=== PATIENT | female | born 1955 | race Caucasian/White ===

== ENCOUNTER 2024-06-19 20:06 | Inpatient (IN) | payer OTHER, SELFPAY ==
[2024-06-19] VITALS (8 sets, daily range): BP systolic 88–135; BP diastolic 57–73; BMI 34.0; BMI 32.5
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
[2024-06-19 16:41] LABS: % Basophils 0.7 % (0-2); % Eosinophils 1.7 % (0-6); % Immature Granulocytes 0.2 % (0-0.5); % Lymphocytes 27.4 % (20.5-51.1); % Monocytes 7.4 % (1.7-9.3); % Neutrophils 62.6 % (42.2-75.2); Absolute Eosinophils 0.1 10^3/uL (0-0.7); Absolute Lymphocytes 1.6 10^3/uL (1.2-3.4); Absolute Monocytes 0.4 10^3/uL (0.1-0.6); Absolute Neutrophils 3.7 10^3/uL (1.4-6.5); Hematocrit 25.5 % (37.0-47.0); Hemoglobin 7.9 g/dL (12.0-16.0); Mean Corpuscular Hgb 25.4 pg (27.0-31.0); Mean Platelet Volume 11.2 fL (7.4-10.4); Nucleated Red Blood Cells % 0 %; Platelet Count 168 10^3/uL (130-400); Red Blood Cell Count 3.11 10^6/uL (4.20-5.40); Red Cell Dist. Width 17.2 % (11.5-14.5); White Blood Cell Count 5.9 10^3/uL (4.8-10.8)
[2024-06-19 16:55] LABS: ALT (SGPT) 14 U/L (0-35); AST (SGOT) 28 U/L (14-36); Albumin 2.8 g/dl (3.5-5.0); Alkaline Phosphatase 54 U/L (38-126); Blood Urea Nitrogen 29 mg/dl (7-17); Calcium 7.9 mg/dl (8.4-10.2); Carbon Dioxide 21 mmol/L (22-30); Chloride 108 mmol/L (98-107); Glucose 137 mg/dl (70-99); Potassium 3.6 mmol/L (3.5-5.1); Sodium 137 mmol/L (135-145); Total Bilirubin 0.2 mg/dl (0.2-1.3); Total Protein 5.5 g/dl (6.3-8.2); eGFR > 60.00
[2024-06-19] MEDS: PROTONIX IV 40 MG IV (19:17)
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
[2024-06-19] MEDS: NON-FORMULARY ITEM PO (20:25)
--- NOTE | 2024-06-19 22:25 | PTCARENOTE ---
Pt received from ED via stretcher. Ambulated to bed w/assist x1 w/o incident. Telemetry = SR. Oriented to surroundings and plan of care discussed. Admission and assessment completed. Pt reports intermittent dizziness, denies at present.
Reports tarry stools, last BM 06/19. Instructed to ring for assist when getting OOB, verbalizes understanding. SCD's place. Call avina within reach, plan of care ongoing.
[2024-06-19] MEDS: ELAVIL 50 MG PO (22:35)
[2024-06-19] MEDS: CRESTOR 5 MG PO (22:35)
[2024-06-20] VITALS (28 sets, daily range): BP systolic 99–148; BP diastolic 49–86; BMI 32.8
[2024-06-20] MEDS: SYNTHROID 50 MCG PO (06:29)
[2024-06-20 08:31] LABS: ALT (SGPT) 14 U/L (0-35); AST (SGOT) 28 U/L (14-36); Albumin 2.9 g/dl (3.5-5.0); Alkaline Phosphatase 58 U/L (38-126); Blood Urea Nitrogen 29 mg/dl (7-17); Calcium 8.5 mg/dl (8.4-10.2); Carbon Dioxide 23 mmol/L (22-30); Chloride 108 mmol/L (98-107); Estimated Creatinine Clearance 69 ml/min; Glucose 99 mg/dl (70-99); Potassium 4.5 mmol/L (3.5-5.1); Sodium 137 mmol/L (135-145); Total Bilirubin 0.1 mg/dl (0.2-1.3); Total Protein 5.5 g/dl (6.3-8.2); eGFR > 60.00
[2024-06-20 08:35] LABS: % Basophils 0.3 % (0-2); % Eosinophils 2.9 % (0-6); % Immature Granulocytes 0.3 % (0-0.5); % Lymphocytes 36.4 % (20.5-51.1); % Monocytes 7.1 % (1.7-9.3); Absolute Eosinophils 0.1 10^3/uL (0-0.7); Absolute Lymphocytes 1.4 10^3/uL (1.2-3.4); Absolute Monocytes 0.3 10^3/uL (0.1-0.6); Hematocrit 21.9 % (37.0-47.0); Mean Corpuscular Hgb 25.9 pg (27.0-31.0); Mean Corpuscular Volume 81.1 fL (81.0-99.0); Mean Platelet Volume 11.6 fL (7.4-10.4); Nucleated Red Blood Cells % 0 %; Platelet Count 122 10^3/uL (130-400); Red Cell Dist. Width 17.4 % (11.5-14.5); White Blood Cell Count 3.8 10^3/uL (4.8-10.8)
[2024-06-20] MEDS: VITAMIN D3 (cholecalciferol) 25 MCG PO (09:06)
[2024-06-20] MEDS: NSS (PRESERVATIVE FREE) 10 ML IV (09:06)
[2024-06-20] MEDS: DITROPAN 2.5 MG PO ×2 (09:06→21:13)
[2024-06-20] MEDS: PROTONIX IV 40 MG IV (09:07)
[2024-06-20 09:15] LABS: Hepatitis C Antibody Negative (Negative)
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
[2024-06-20 10:49] LABS: Reticulocyte Count 2.5 % (0.4-2.8)
--- NOTE | 2024-06-20 11:34 | W.PN.HOSP.TC ---
Addendum entered and electronically signed by Richard Patel MD 06/30/24 12:56:
Pancytopenia pattern noted, but cause not known.
Original Note:
Today's Communication/Plan
-
NPO pending EGD. 1 unit prbc ordered.
Assessment / Plan
Assessment / Plan
69 woman with syncopal event and black stools after taking ibuprofen.
PLAN:
1. Upper GI bleeding/symptomatic acute blood loss anemia likely from NSAID induced gastritis/ulcer
-Hemoglobin 7.9 --> 7.0 blood transfusion x1 unit ordered now
-Heme positive stool
-Type and screen sent
-Protonix 40 twice daily
-n.p.o
-Hold ibuprofen
-Check iron studies, B12 and folate
-GI consulted
2. Hypothyroidism
-Continue levothyroxine once she can take po again
3. Chronic interstitial cystitis - continue po meds when she can resume po:
-Continue amitriptyline
-Continue oxybutynin
-Continue Elmiron
4. Hyperlipidemia - continue when she can resume po
-Continue statin
5. Essential hypertension
-Hold metoprolol
Full code
DVT prophylaxis�SCDs
N.p.o. past midnight
Anticipated Discharge: 24 - 48 hours
Subjective/Interval History
-
Date of Service: June 20, 2024
no new complaints today
Objective Data
-
Labs:
Laboratory Results
06/20/24 06/20/24 06/20/24
06:42 11:45 17:45
WBC 3.8 L
Hgb 7.0 L Pending Pending
Hct 21.9 L Pending Pending
Plt Count 122 L D
Sodium 137
Potassium 4.5
Chloride 108 H
Carbon Dioxide 23
BUN 29 H
Creatinine 0.8
Glucose 99
Calcium 8.5
Total Bilirubin 0.1 L
AST 28
ALT 14
Alkaline Phosphatase 58
06/20/24
23:45
WBC
Hgb Pending
Hct Pending
Plt Count
Sodium
Potassium
Chloride
Carbon Dioxide
BUN
Creatinine
Glucose
Calcium
Total Bilirubin
AST
ALT
Alkaline Phosphatase
Vital Signs:
Vital Signs
Temp Pulse Resp BP Pulse Ox
98.2 F 81 17 107/55 100
06/20/24 11:11 06/20/24 11:11 06/20/24 11:11 06/20/24 11:11 06/20/24 11:11
Review of Systems
-
History Source: Patient
All other systems: Reviewed and negative
Physical Exam
-
General: Well Developed, Well Nourished, No Apparent Distress, Comfortable and Obese
HEENT: Normocephalic, Atraumatic, Nose Appears Normal and Ears Appear Normal
Respiratory: Clear to Auscultation
Cardiac: Regular Rhythm and S1/S2
GI: Soft, Nontender and Nondistended
Musculoskeletal: No Clubbing, No Cyanosis and No Edema
Skin: Warm and Dry
Neuro: Awake, Alert, Oriented and AO x 3
Psych: Calm
Data Reviewed
-
Labs: Labs Reviewed by me
[2024-06-20] MEDS: NON-FORMULARY ITEM 200 MG PO (12:01)
[2024-06-20 12:05] LABS: Iron 241 ug/dl (37-170)
[2024-06-20 12:20] LABS: Percent Saturation 56 % (20-50); Total Iron Binding Capacity 424 ug/dl (265-497)
[2024-06-20 12:40] LABS: Ferritin 46.4 ng/ml (11.1-264.0)
[2024-06-20 12:56] LABS: Vitamin B12 428 pg/ml (239-931)
--- NOTE | 2024-06-20 12:57 | PN.CDI ---
CDI
- -
CDI:
Physician Documentation Request
Admit Date: 06/19/24 20:06
Dear Doctor Jorge,
Please review the following and provide your response in the progress notes.
Clinical Indicators:
Laboratory Tests
06/20/24
06:42
WBC 3.8 L
RBC 2.70 L
Plt Count 122 L D
Based on the above and your clinical assessment, please clarify in the progress notes, the appropriate diagnosis, if significant, that supports the above abnormalities and additional evaluation, monitoring and/or treatment rendered:
Other Drug Induced Pancytopenia
Other Pancytopenia
Other (please specify)
Use of terms such as suspected, likely, concern for, or probable (associated with a specific diagnosis that is being evaluated, monitored, or treated as if it exists) are acceptable and can be coded in the inpatient setting, when documented at the
time of discharge.
Thank you,
Neema Faria RN BSN CCDS
CDI Specialist
please contact via tiger text
Please use your independent medical judgment in providing your response.
--- NOTE | 2024-06-20 13:01 | PN.CDI ---
CDI
- -
CDI:
Physician Documentation Request
Admit Date: 06/19/24 20:06
Dear Doctor Jorge,
Please review the following and provide your response in the progress notes.
Clinical Indicators:
PN, 06/20
#1. Upper GI bleeding/symptomatic acute blood loss anemia
#...likely from NSAID induced gastritis/ulcer
Please clarify which of the following accurately represents the acuity of the NSAID induced gastritis/ulcer. Possible options might include:
Acute Gastritis and Acute Gastric Ulcer
Acute Gastritis Only
Acute Gastric Ulcer Only
Exacerbated/decompensated gastric ulcer
Other(please specify)
Use of terms such as suspected, likely, concern for, or probable (associated with a specific diagnosis that is being evaluated, monitored, or treated as if it exists) are acceptable and can be coded in the inpatient setting, when documented at the
time of discharge.
Thank you,
Neema Faria RN BSN CCDS
CDI Specialist
please contact via tiger text
Please use your independent medical judgment in providing your response.
--- NOTE | 2024-06-20 13:15 | PTCARENOTE ---
GI called for patient to go for EGD. Was about to call for 1 Unit of PRBC. GI RN requested that patient come first/blood to be given in GI Lab if needed/will be hung after case.
[2024-06-20 14:38] LABS: INR 0.99; PT 13.6 Sec (11.4-14.6)
[2024-06-20] MEDS: SANDOSTATIN 500.6 MCG IV ×2 (15:14→15:21)
[2024-06-20] MEDS: CIPRO 400 MG 200 IV (15:32)
[2024-06-20] MEDS: PROTONIX 100 IV (16:25)
--- NOTE | 2024-06-20 16:58 | CM ---
Alert awake oriented patient who lives with her Edward in a condo with 12 steps to enter. She is independent in activates of daily living.She does drive She has no adapt devices.Pt will be moving after procedure.
Had VN in past . No SNF hx
Pharmacy [facility]
PCP [facility]
PLAN AWill depend on hospital stay
[2024-06-20 17:26] LABS: Hepatitis B Surface Antigen Negative (Negative)
[2024-06-20 17:30] LABS: Hepatitis A IgM Antibody Negative (Negative); Hepatitis B Core Ab, IgM Negative (Negative)
[2024-06-20] MEDS: SANDOSTATIN 50 MCG IV (17:32)
[2024-06-20 17:35] LABS: Hemoglobin 9.4 g/dL (12.0-16.0); Mean Corp Hgb Conc. 31.3 g/dL (33.0-37.0); Mean Corpuscular Hgb 26.3 pg (27.0-31.0); Mean Platelet Volume 12.1 fL (7.4-10.4); Platelet Count 126 10^3/uL (130-400); Red Blood Cell Count 3.57 10^6/uL (4.20-5.40); Red Cell Dist. Width 16.9 % (11.5-14.5); White Blood Cell Count 4.1 10^3/uL (4.8-10.8)
[2024-06-20 17:43] LABS: Hepatitis B Surface Antibody Negative
--- NOTE | 2024-06-20 18:23 | PTCARENOTE ---
Arrived from PACU via stretcher. and her son is at the bedside and will leave her cell phone and cost and risk analysis manager. Pt with c.o epigastric discomfort. Dr. Seymour informed her in the GI lab that the discomfort is expected after banding. Right hand IV with
Protonix @ 8mg/hr and Octreotide @ 50mcg/hr. She is aware that she will be transferred to IMU. Safe environment maintained, Supportive care provided.
--- NOTE | 2024-06-20 19:13 | PTCARENOTE ---
Per KILN BURNER, ultrasound department was left a phone message for her abdominal ultrasound.
--- NOTE | 2024-06-20 19:30 | PTCARENOTE ---
Patient receieved awake and alert lying in bed, c/o epigastric/esophageal discomfort 04/03. No prn pain medication ordered. Arpan CARMONA contacted for orders. One time dose of IV Acetaminophen given. BBS clear, S1S2 regular, SR on CM. Pulses positive x
4 extremities, no edema. IV sites right hand x 2 patent infusing Protonix gtt at 8mg/hr and Sandostatin gtt at 50mcg/hr.
[2024-06-20] MEDS: OFIRMEV 100 IV (19:44)
[2024-06-20] MEDS: NSS (PRESERVATIVE FREE) IV (21:04)
[2024-06-20] MEDS: CRESTOR 5 MG PO (21:13)
[2024-06-20] MEDS: ULTRAM 25 MG PO (21:14)
--- NOTE | 2024-06-20 22:00 | PTCARENOTE ---
Patient assisted to bathroom, gait steady but feels 'wobbly.' Voids 300cc bharat urine. Assisted back to bed. ST 110s with activity. No CP or SOB. Continues to have 8/10 pain. Prn Dilaudid given per order.
[2024-06-20] MEDS: DILAUDID 0.25 MG IV (22:12)
--- NOTE | 2024-06-20 23:03 | PTCARENOTE ---
2030--Abdominal U/S performed at bedside. Clear liquids ordered for patient after complete, po medications given. Continues to have epigastric/esophageal discomfort 02/01. 25mg Tramadol given per order. Patient states that pressure from abdominal U/S
worsened discomfort.
[2024-06-21] VITALS (16 sets, daily range): BP systolic 120–153; BP diastolic 55–86
--- NOTE | 2024-06-21 | PTCARENOTE ---
Patient states that esophageal pain is currently well controlled. Otherwise, no change in patient assessment. Serial H/H drawn. Patient appears to be sleeping comfortably when undisturbed with eyes closed, lying still, respirations non labored. SR
with HR 70s on CM, BP stable.
[2024-06-21] MEDS: PROTONIX 100 IV ×3 (00:08→22:56)
[2024-06-21 00:40] LABS: Hematocrit 26.1 % (37.0-47.0); Hemoglobin 8.4 g/dL (12.0-16.0)
[2024-06-21] MEDS: SANDOSTATIN 500.6 MCG IV ×2 (02:33→14:36)
[2024-06-21] MEDS: DILAUDID 0.25 MG IV (02:45)
[2024-06-21] MEDS: CIPRO 400 MG 200 IV ×2 (03:34→17:43)
--- NOTE | 2024-06-21 05:00 | PTCARENOTE ---
Patient awoke. C/o nausea. Assisted to bathroom. Voided 275. Zofran given per order. Assisted back to bed. Patient vomited approx 50-75cc fresh blood. Notified house KRISTINE Antony. Also sent [place] text to GI education and outreach coordinator Dr. Jorge Leger. Am labs were drawn. Hgb
stable from previous at 8.6. Patient states relief of nausea after Zofran and emesis.
[2024-06-21] MEDS: ZOFRAN 4 MG IV (05:09)
[2024-06-21 06:06] LABS: % Basophils 0.9 % (0-2); % Immature Granulocytes 0.6 % (0-0.5); % Lymphocytes 31.1 % (20.5-51.1); % Monocytes 6.8 % (1.7-9.3); % Neutrophils 56.6 % (42.2-75.2); Absolute Eosinophils 0.1 10^3/uL (0-0.7); Absolute Monocytes 0.2 10^3/uL (0.1-0.6); Absolute Neutrophils 1.8 10^3/uL (1.4-6.5); Hematocrit 27.4 % (37.0-47.0); Hemoglobin 8.6 g/dL (12.0-16.0); Mean Corp Hgb Conc. 31.4 g/dL (33.0-37.0); Mean Corpuscular Hgb 25.9 pg (27.0-31.0); Mean Corpuscular Volume 82.5 fL (81.0-99.0); Mean Platelet Volume 10.5 fL (7.4-10.4); Nucleated Red Blood Cells % 0 %; Platelet Count 130 10^3/uL (130-400); Red Blood Cell Count 3.32 10^6/uL (4.20-5.40); Red Cell Dist. Width 17.1 % (11.5-14.5); White Blood Cell Count 3.3 10^3/uL (4.8-10.8)
[2024-06-21] MEDS: SYNTHROID PO (06:07)
[2024-06-21 06:23] LABS: INR 1.03
--- NOTE | 2024-06-21 06:26 | W.PN.UPDATE ---
Update Note
Progress Note Update
RN reported to ASSISTANT DIRECTOR OF PUBLIC WORKS. patient had an episode of emesis. Reports approximately 50 CC of blood. Patient asymptomatic. stable VS, Hgb 8.6, NPO, Protonix drip.
RN stated she texted GI awaiting response.
[2024-06-21 06:39] LABS: Blood Urea Nitrogen 26 mg/dl (7-17); Carbon Dioxide 22 mmol/L (22-30); Chloride 106 mmol/L (98-107); Direct Bilirubin 0.1 mg/dl (0.0-0.4); Estimated Creatinine Clearance 69 ml/min; Glucose 141 mg/dl (70-99); Potassium 4.1 mmol/L (3.5-5.1); Sodium 135 mmol/L (135-145); eGFR > 60.00
--- NOTE | 2024-06-21 07:20 | PTCARENOTE ---
Report given verbally to KSENIA Mcgovern, questions answered.
--- NOTE | 2024-06-21 07:39 | PTCARENOTE ---
07:00 patient in bed . BP 130/73 SR 73 telemetry RR 14 POX 97RA .
Octreotide 50.04/41.07 and Protonix 8mcg/10ml RT peripheral lines
call avina within reach
--- NOTE | 2024-06-21 08:04 | W.PN.HOSP.TC ---
Today's Communication/Plan
-
see A/P
Assessment / Plan
Assessment / Plan
69 woman with syncopal event and black stools after taking ibuprofen.
A/P:
# Upper GI bleeding/symptomatic acute blood loss anemia, 2/2 esophageal varices
# UGIB exacerbated by NSAID use
s/p 1 unit PRBC transfusion
Hgb 8.6 today
s/p EGD 06/20: noted Large (> 5 mm) esophageal varices with stigmata of recent bleeding. Banded. Clotted blood in the gastric fundus.
Made NPO again with N/V overnight 06/20
Octreotide drip, Protonix drip per GI
Cipro started for HE prophylaxis.
Abdominal ultrasound with doppler was limited, did not reveal any abnormality. Coarsened echotexture of the liver which is likely secondary to chronic liver disease.
Hepatitis panel negative
Need repeat upper GI endoscopy in 4 weeks with GI outpt
Hold ibuprofen
Iron studies reviewed, can start PO iron
B12 level 400, can start PO B12 supplement
# Hypothyroidism
Continue levothyroxine once she can take po again
# Chronic interstitial cystitis
Continue po meds when she can resume po:
Continue amitriptyline
Continue oxybutynin
Continue Elmiron
# Hyperlipidemia - continue when she can resume po
Continue statin
# Essential hypertension
Hold metoprolol
Full code
DVT prophylaxis�SCDs
DW RN
updated on the phone
CC mx for variceal bleed
Anticipated Discharge: 24 - 48 hours
Subjective/Interval History
-
Date of Service: June 21, 2024
Objective Data
-
Labs:
Laboratory Results
06/21/24 06/21/24
00:15 05:54
WBC 3.3 L
Hgb 8.4 L 8.6 L
Hct 26.1 L 27.4 L
Plt Count 130
PT 14.0
INR 1.03
Sodium 135
Potassium 4.1
Chloride 106
Carbon Dioxide 22
BUN 26 H
Creatinine 0.8
Glucose 141 H
Calcium 8.0 L
Vital Signs:
Vital Signs
Temp Pulse Resp BP Pulse Ox
36.6 C 75 14 130/73 97
06/21/24 03:04 06/21/24 06:00 06/21/24 06:00 06/21/24 06:00 06/21/24 06:00
I&O
06/20/24 06/21/24 06/22/24
06:59 06:59 06:59
Intake Total 1831.3 / 1831.3
Output Total 650 / 650
Balance 1181.3 / 1181.3
Review of Systems
-
History Source: Patient
Abdomen/GI: Reports Abdominal Pain (epigastric)
Physical Exam
-
General: Well Developed, Well Nourished, No Apparent Distress and Comfortable
HEENT: Normocephalic, Atraumatic, Nose Appears Normal and Ears Appear Normal
Respiratory: Clear to Auscultation and Non Labored Respirations; Negative Accessory Resp Muscle Use
Cardiac: Regular Rhythm and S1/S2
GI: Soft, Nontender and Nondistended
Musculoskeletal: No Clubbing, No Cyanosis and No Edema
Skin: Warm and Dry
Neuro: Awake and Alert
Psych: Calm and Intact Judgement/Insight
Data Reviewed
-
Ultrasound: Report Reviewed by me, Discussed with Patient and Discussed with Family
Labs: Labs Reviewed by me
[2024-06-21] MEDS: FEOSOL PO (12:24)
[2024-06-21] MEDS: DITROPAN PO ×2 (12:24→20:14)
[2024-06-21] MEDS: VITAMIN B-12 PO (12:24)
[2024-06-21] MEDS: MORPHINE SULFATE 1 MG IV (12:31)
--- NOTE | 2024-06-21 12:42 | PTCARENOTE ---
AAO x3 ambulates to bathroom with supervision . No episodes of melena or vomiting. continues to c/o of epigastric pain describes pain aching 8/10 pain scale level Morphine adm prn order. On IV protonix and sandostatin . Remains NPO ok ICE chips .
ALL pO meds held
--- NOTE | 2024-06-21 16:30 | W.PN.GI.CBS2 ---
Today's Communication / Plan
-
N.p.o.
Continue octreotide/Protonix drip
Continue antibiotic
Continue monitor H&H
Assessment / Plan
-
Impression: 69-year-old female with PMH of hypothyroidism, dyslipidemia, essential hypertension who presented to the ED with melena, dizziness. Labs done in the ED was significant for Hb of 7.9.
Assessment/plan:
#Symptomatic acute blood loss anemia
Upper GI bleeding secondary to varices s/p EGD with EBL 06/20. No prior hx of liver cirrhosis. denies any significant alcohol use or history of hepatitis or substance abuse.AST/ALT/ALP/T.bili normal
EGD 06/20/2024:
Large (> 5 mm) esophageal varices with stigmata of
recent bleeding. Incompletely eradicated. Banded.
- Clotted blood in the gastric fundus.
- Normal duodenal bulb, first portion of the duodenum
and second portion of the duodenum.
- No specimens collected.
Ultrasound abdomen with Doppler 06/20/2024
Coarsened echotexture of the liver which is likely secondary to chronic liver disease. Normal ultrasound evaluation of abdominal vasculature. No ascites
plan
Although patient had an episode of nausea with small amount of bloody vomitus early a.m.-she has been asymptomatic since then. Hb stable.
Will continue to monitor H&H
N.p.o. except ice chips
Continue octreotide drip for 72 hours
PPI drip for 72 hrs
Continue antibiotics for 7 days
Repeat EGD in [address] Seymour
Acute hepatitis panel negative. will order chronic liver disease workup
Patient needs to follow-up with hepatology as outpatient on discharge
Total Time Spent with Patient (in minutes): 35
Subjective
Subjective
Date of Service: June 21, 2024
Had an episode of nausea followed by vomiting small amount of blood this a.m. no further episodes since this a.m. No BMs. Denies any abdominal pain/nausea/vomiting now
Objective
Data Reviewed
Laboratory Data:
Laboratory Results
06/21/24 05:54
06/21/24 05:54
Laboratory Results
PT 14.0 Sec (11.4-14.6) 06/21/24 05:54
INR 1.03 06/21/24 05:54
Total Bilirubin 0.1 mg/dl (0.2-1.3) L 06/20/24 06:42
AST 28 U/L (14-36) 06/20/24 06:42
ALT 14 U/L (0-35) 06/20/24 06:42
Alkaline Phosphatase 58 U/L (38-126) 06/20/24 06:42
Vital Signs and I&O:
Vital Signs
Temp Pulse Resp BP Pulse Ox
98.0 F 76 13 135/66 99
06/21/24 16:06 06/21/24 12:00 06/21/24 12:00 06/21/24 12:00 06/21/24 12:00
I&O
06/20/24 06/21/24 06/22/24
06:59 06:59 06:59
Intake Total 1831.3 / 1831.3
Output Total 650 / 650 300 / 300
Balance 1181.3 / 1181.3 -300 / -300
Physical Exam
Physical Exam
GI: Soft, Non Distended and Non Tender
--- NOTE | 2024-06-21 18:13 | PTCARENOTE ---
No episodes of bleeding during this shift no vomiting
mild epigastric pain Morphine adm earlier pt reported very mild pain improvement
[2024-06-21] MEDS: CRESTOR PO (20:22)
[2024-06-22] VITALS (12 sets, daily range): BP systolic 108–142; BP diastolic 44–72; BMI 32.1
[2024-06-22 04:04] LABS: Hematocrit 25.9 % (37.0-47.0); Hemoglobin 8.3 g/dL (12.0-16.0); Mean Corpuscular Volume 81.2 fL (81.0-99.0); Mean Platelet Volume 10.4 fL (7.4-10.4); Platelet Count 142 10^3/uL (130-400); Red Blood Cell Count 3.19 10^6/uL (4.20-5.40); Red Cell Dist. Width 17.4 % (11.5-14.5); White Blood Cell Count 4.5 10^3/uL (4.8-10.8)
[2024-06-22 04:25] LABS: ALT (SGPT) 14 U/L (0-35); AST (SGOT) 35 U/L (14-36); Albumin 3.1 g/dl (3.5-5.0); Alkaline Phosphatase 60 U/L (38-126); Blood Urea Nitrogen 18 mg/dl (7-17); Calcium 8.1 mg/dl (8.4-10.2); Carbon Dioxide 20 mmol/L (22-30); Chloride 106 mmol/L (98-107); Direct Bilirubin 0.1 mg/dl (0.0-0.4); Estimated Creatinine Clearance 69 ml/min; Glucose 106 mg/dl (70-99); Magnesium 1.7 mg/dl (1.6-2.3); Potassium 4.2 mmol/L (3.5-5.1); Sodium 137 mmol/L (135-145); Total Bilirubin 0.6 mg/dl (0.2-1.3); eGFR > 60.00
[2024-06-22 04:35] LABS: Total Iron Binding Capacity 443 ug/dl (265-497)
[2024-06-22] MEDS: CIPRO 400 MG 200 IV ×2 (04:42→15:40)
[2024-06-22] MEDS: SANDOSTATIN 500.6 MCG IV ×2 (04:42→15:40)
[2024-06-22 04:49] LABS: Ferritin 52.8 ng/ml (11.1-264.0)
[2024-06-22] MEDS: SYNTHROID PO (05:00)
--- NOTE | 2024-06-22 08:27 | PTCARENOTE ---
0700 patient in bed. on Protonix 8mcg/10 ml Sandostatin 50/41.7 VSS
--- NOTE | 2024-06-22 09:05 | W.PN.HOSP.TC ---
Today's Communication/Plan
-
see A/P
Assessment / Plan
Assessment / Plan
69 woman with syncopal event and black stools after taking ibuprofen.
A/P:
# Upper GI bleeding/symptomatic acute blood loss anemia, 2/2 esophageal varices
# UGIB exacerbated by NSAID use
s/p 1 unit PRBC transfusion
Hgb 8.3 today
s/p EGD 06/20: noted Large (> 5 mm) esophageal varices with stigmata of recent bleeding. Banded. Clotted blood in the gastric fundus.
Octreotide drip and Protonix drip x72 hours per GI
Cipro started for HE prophylaxis x7 days
Abdominal ultrasound with doppler was limited, did not reveal any abnormality. Coarsened echotexture of the liver which is likely secondary to chronic liver disease.
Hepatitis panel negative
Follow autoimmune Ab (CRIS, mitochondrial, liver Ag Ab, liver/kidney microsome, anti smooth muscle) for AIH work up
Need repeat upper GI endoscopy in 4 weeks with GI outpt
Hold ibuprofen
Iron studies reviewed, started PO iron
B12 level 400, started PO B12 supplement
Start clears 06/22 and ADAT
# Hypothyroidism
Continue levothyroxine once she can take po again
# Chronic interstitial cystitis
Continue po meds when she can resume po:
Continue amitriptyline
Continue oxybutynin
Continue Elmiron
# Hyperlipidemia - continue when she can resume po
Continue statin
# Essential hypertension
Hold metoprolol
Full code
DVT prophylaxis�SCDs
DW extensively at bedside
total time spent 51 min
Anticipated Discharge: 24 - 48 hours
Subjective/Interval History
-
Date of Service: June 22, 2024
Objective Data
-
Labs:
Laboratory Results
06/22/24
03:40
WBC 4.5 L
Hgb 8.3 L
Hct 25.9 L
Plt Count 142
Sodium 137
Potassium 4.2
Chloride 106
Carbon Dioxide 20 L
BUN 18 H
Creatinine 0.8
Glucose 106 H
Calcium 8.1 L
Total Bilirubin 0.6
AST 35
ALT 14
Alkaline Phosphatase 60
Vital Signs:
Vital Signs
Temp Pulse Resp BP Pulse Ox
36.9 C 85 15 135/65 92
06/22/24 07:00 06/22/24 02:00 06/22/24 02:00 06/22/24 02:00 06/22/24 02:00
I&O
06/21/24 06/22/24 06/23/24
06:59 06:59 06:59
Intake Total 1831.3 / 1831.3 824 / 824
Output Total 650 / 650 1350 / 1350
Balance 1181.3 / 1181.3 -526 / -526
[2024-06-22] MEDS: VITAMIN B-12 1000 MCG PO (09:54)
[2024-06-22] MEDS: FEOSOL 325 MG PO (09:54)
[2024-06-22] MEDS: DITROPAN 2.5 MG PO ×2 (09:54→19:09)
[2024-06-22] MEDS: PROTONIX 100 IV ×2 (10:03→19:09)
--- NOTE | 2024-06-22 11:51 | W.PN.GI.CBS2 ---
Today's Communication / Plan
-
Clear liquid diet
Monitor H&H
Continue care as per plan
Assessment / Plan
-
Impression: 69-year-old female with PMH of hypothyroidism, dyslipidemia, essential hypertension who presented to the ED with melena, dizziness. Labs done in the ED was significant for Hb of 7.9.
Assessment/plan:
#Symptomatic acute blood loss anemia
Upper GI bleeding secondary to varices s/p EGD with EBL 06/20. No prior hx of liver cirrhosis. denies any significant alcohol use or history of hepatitis or substance abuse.AST/ALT/ALP/T.bili normal
EGD 06/20/2024:
Large (> 5 mm) esophageal varices with stigmata of
recent bleeding. Incompletely eradicated. Banded.
- Clotted blood in the gastric fundus.
- Normal duodenal bulb, first portion of the duodenum
and second portion of the duodenum.
- No specimens collected.
Ultrasound abdomen with Doppler 06/20/2024
Coarsened echotexture of the liver which is likely secondary to chronic liver disease. Normal ultrasound evaluation of abdominal vasculature. No ascites
plan
No further GI bleeding. Hb stable this a.m.
monitor H&H
Clear liquid diet
Continue octreotide drip for 72 hours (okay to DC tomorrow)
PPI drip for 72 hrs. Switch to 40 mg twice daily tomorrow continue antibiotics for 7 days
Repeat EGD in [address] Seymour
Acute hepatitis panel negative. ordered chronic liver disease workup-pending
Patient needs to follow-up with hepatology as outpatient on discharge
Total Time Spent with Patient (in minutes): 35
Subjective
Subjective
Date of Service: June 22, 2024
No further bleeding. Denies any other GI complaints
Objective
Data Reviewed
Laboratory Data:
Laboratory Results
06/22/24 03:40
06/22/24 03:40
Laboratory Results
PT 14.0 Sec (11.4-14.6) 06/21/24 05:54
INR 1.03 06/21/24 05:54
Magnesium 1.7 mg/dl (1.6-2.3) 06/22/24 03:40
Total Bilirubin 0.6 mg/dl (0.2-1.3) 06/22/24 03:40
AST 35 U/L (14-36) 06/22/24 03:40
ALT 14 U/L (0-35) 06/22/24 03:40
Alkaline Phosphatase 60 U/L (38-126) 06/22/24 03:40
Vital Signs and I&O:
Vital Signs
Temp Pulse Resp BP Pulse Ox
98.5 F 85 15 135/65 92
06/22/24 07:00 06/22/24 02:00 06/22/24 02:00 06/22/24 02:00 06/22/24 02:00
I&O
06/21/24 06/22/24 06/23/24
06:59 06:59 06:59
Intake Total 1831.3 / 1831.3 824 / 824
Output Total 650 / 650 1350 / 1350
Balance 1181.3 / 1181.3 -526 / -526
Physical Exam
Physical Exam
GI: Soft, Non Distended and Non Tender
--- NOTE | 2024-06-22 17:10 | PTCARENOTE ---
AAO x3 Ambulates to bathroom . Continent of urine. VSS Denies epigastric pain . Abdomen soft non-tender No N/V Tolerating Clear liquid diet . No melena this shift. on Protonix and Sandostatin
[2024-06-22] MEDS: CRESTOR 5 MG PO (21:19)
[2024-06-23] VITALS (11 sets, daily range): BP systolic 114–140; BP diastolic 58–78
--- NOTE | 2024-06-23 01:46 | PTCARENOTE ---
Received transfer from ICU. AAOx3. On RA, lungs CTA. VSS at this time. Pt offers no complaints. Resting in bed with call avina in reach.
[2024-06-23] MEDS: SYNTHROID 50 MCG PO (04:32)
[2024-06-23] MEDS: CIPRO 400 MG 200 IV ×2 (04:32→16:58)
[2024-06-23 05:20] LABS: Hematocrit 24.4 % (37.0-47.0); Hemoglobin 7.8 g/dL (12.0-16.0); Mean Corpuscular Hgb 26.6 pg (27.0-31.0); Mean Corpuscular Volume 83.3 fL (81.0-99.0); Mean Platelet Volume 10.9 fL (7.4-10.4); Platelet Count 130 10^3/uL (130-400); Red Blood Cell Count 2.93 10^6/uL (4.20-5.40); Red Cell Dist. Width 17.7 % (11.5-14.5); White Blood Cell Count 3.3 10^3/uL (4.8-10.8)
[2024-06-23 05:46] LABS: ALT (SGPT) 12 U/L (0-35); AST (SGOT) 35 U/L (14-36); Alkaline Phosphatase 62 U/L (38-126); Blood Urea Nitrogen 12 mg/dl (7-17); Calcium 7.9 mg/dl (8.4-10.2); Carbon Dioxide 22 mmol/L (22-30); Chloride 107 mmol/L (98-107); Direct Bilirubin 0.1 mg/dl (0.0-0.4); Estimated Creatinine Clearance 61 ml/min; Glucose 105 mg/dl (70-99); Potassium 3.7 mmol/L (3.5-5.1); Sodium 136 mmol/L (135-145); Total Bilirubin 0.4 mg/dl (0.2-1.3); Total Protein 5.6 g/dl (6.3-8.2); eGFR > 60.00
[2024-06-23] MEDS: PROTONIX 100 IV (06:20)
[2024-06-23] MEDS: VITAMIN B-12 1000 MCG PO (08:36)
[2024-06-23] MEDS: DITROPAN 2.5 MG PO ×2 (08:36→20:48)
[2024-06-23] MEDS: FEOSOL 325 MG PO (08:36)
--- NOTE | 2024-06-23 09:42 | W.PN.GI.CBS2 ---
Addendum entered and electronically signed by Hayden Aguayo MD 06/23/24 13:52:
I saw and examined the patient.
The SUPERVISOR CELL ROOM or PA's note was reviewed and I agree with the note.
Comment: 69 yo F admitted with melena and anemia s/p EGD with Dr. Seymour 06/20 found to have esophageal varices s/p banding, blood in stomach limiting views.
Platelets low/normal, coarse echotexture on liver on Doppler suspect new diagnosis cirrhosis. No ETOH use in past.
Slight drop in Hb today but no overt bleeding.
Will continue octreotide gtt until tomorrow.
On full liquids now.
On PPI BID since stomach could not be fully evaluated.
Plan repeat EGD in 4 weeks - this needs to be set up I sent a msg to scheduling.
Has outpatient appt with Jodie 07/09 at 11:30am.
I had my office reach out to PCP - ok with changing metoprolol to coreg on discharge would be beneficial for varices.
I gave patient name/number of Dr. Cole.
Will need 7 days of cipro total.
If Hb stable, can stop octreotide tomorrow and advance diet.
Dr. Garcia ordered liver work up.
Original Note:
Today's Communication / Plan
-
advance to full liquid
Assessment / Plan
-
Impression: 69-year-old female with PMH of hypothyroidism, dyslipidemia, essential hypertension who presented to the ED with melena, dizziness. Labs done in the ED was significant for Hb of 7.9.
Assessment/plan:
#Symptomatic acute blood loss anemia
Upper GI bleeding secondary to varices s/p EGD with EBL 06/20. No prior hx of liver cirrhosis. denies any significant alcohol use or history of hepatitis or substance abuse.AST/ALT/ALP/T.bili normal
EGD 06/20/2024:
Large (> 5 mm) esophageal varices with stigmata of
recent bleeding. Incompletely eradicated. Banded.
- Clotted blood in the gastric fundus.
- Normal duodenal bulb, first portion of the duodenum
and second portion of the duodenum.
- No specimens collected.
Ultrasound abdomen with Doppler 06/20/2024
Coarsened echotexture of the liver which is likely secondary to chronic liver disease. Normal ultrasound evaluation of abdominal vasculature. No ascites
Plan:
No further GI bleeding. Hb stable this a.m.
CBC, BMP in am
Advance to full liquid
Continue octreotide drip to be DC today
PPI drip to finish today, then Pantoprazole 40 mg BID
Continue Cipro BID until 06/27/24
Repeat EGD in [address] Seymour. sent message to our scheduling to arrange
Acute hepatitis panel negative. T Bili and LFTs WNL
Ordered chronic liver disease workup-pending
Patient needs to follow-up with hepatology as outpatient on discharge. Discussed with patient and given name of Dr. Cole at [facility] (who comes to [place] office).
Subjective
Subjective
Date of Service: June 23, 2024
Patient without any complaints. Tolerating clear liquid diet without any difficulty. No BM or signs of bleeding. Hgb 7.8 (from 8.3) past 24 hrs. BUN 12, down from 18. VSS. Today is last day for Octreotide gtt and Pantoprazole gtt. Then may go to
Pantoprazole 40 mg BID. Continues on Cipro 400 mg IV BID until 06/27/24 for ppx. No signs of asterixis. Discussed with patient and at length at bedside about cirrhosis, need for repeat EGD and follow up with Hepatology as an outpatient.
Objective
Data Reviewed
Laboratory Data:
Laboratory Results
06/23/24 04:41
06/23/24 04:41
Laboratory Results
PT 14.0 Sec (11.4-14.6) 06/21/24 05:54
INR 1.03 06/21/24 05:54
Magnesium 1.7 mg/dl (1.6-2.3) 06/22/24 03:40
Total Bilirubin 0.4 mg/dl (0.2-1.3) 06/23/24 04:41
AST 35 U/L (14-36) 06/23/24 04:41
ALT 12 U/L (0-35) 06/23/24 04:41
Alkaline Phosphatase 62 U/L (38-126) 06/23/24 04:41
Vital Signs and I&O:
Vital Signs
Temp Pulse Resp BP Pulse Ox
97.8 F 67 14 137/67 94
06/23/24 07:50 06/23/24 08:00 06/23/24 08:00 06/23/24 08:00 06/23/24 08:00
I&O
06/22/24 06/23/24 06/24/24
06:59 06:59 06:59
Intake Total 824 / 824 1456 / 1456
Output Total 1350 / 1350 1800 / 1800 350 / 350
Balance -526 / -526 -344 / -344 -350 / -350
Physical Exam
Physical Exam
HEENT: Anicteric
Cardiology: Normal Sinus Rhythm
Pulmonary: Clear
GI: Soft, Non Distended, Non Tender and Normal Bowel Sounds
Neuro: Non Focal and Other (no asterixis)
--- NOTE | 2024-06-23 10:06 | W.PN.HOSP.TC ---
Today's Communication/Plan
-
H/H at 6 pm. If < 7.0/21, will need transfusion. Otherwise, can have full liquids today.
Assessment / Plan
Assessment / Plan
69 woman with syncopal event and black stools after taking ibuprofen.
EGD 06/20: noted Large (> 5 mm) esophageal varices with stigmata of recent bleeding. Banded. Clotted blood in the gastric fundus.
A/P:
1. Upper GI bleeding/symptomatic acute blood loss anemia, 2/2 esophageal varices - UGIB exacerbated by NSAID use
s/p 1 unit PRBC transfusion
Hgb 8.3 yesterday -> 7.8 today
-Check h/h today in afternoon, if < 7.0/21 give one unit PRBC
Octreotide drip and Protonix drip per GI
Cipro started for HE prophylaxis x7 days total
Abdominal ultrasound with doppler was limited, did not reveal any abnormality. Coarsened echotexture of the liver which is likely secondary to chronic liver disease.
Hepatitis panel negative
- Follow autoimmune Ab (CRIS, mitochondrial, liver Ag Ab, liver/kidney microsome, anti smooth muscle) for AIH work up
- Need repeat upper GI endoscopy in 4 weeks with GI outpt
- Hold ibuprofen all NSAIDS indefinitely
- Iron studies reviewed, started PO iron
- B12 level 400, started PO B12 supplement
Per GI, diet can be advanced today to full liquids
2. Hypothyroidism
Continue levothyroxine
3. Chronic interstitial cystitis
Continue po meds when she can resume po:
Continue amitriptyline
Continue oxybutynin
Continue Elmiron
4. Hyperlipidemia
Continue statin
5. Essential hypertension
Hold metoprolol
restart as ouutpatient
Full code
DVT prophylaxis�SCDs
DW extensively at bedside
total time spent 51 min
Anticipated Discharge: > 48 hours
Subjective/Interval History
-
Date of Service: June 23, 2024
Feels better. Has chronic neck pain.
Objective Data
-
Labs:
Laboratory Results
06/23/24
04:41
WBC 3.3 L
Hgb 7.8 L
Hct 24.4 L
Plt Count 130
Sodium 136
Potassium 3.7
Chloride 107
Carbon Dioxide 22
BUN 12
Creatinine 0.9
Glucose 105 H
Calcium 7.9 L
Total Bilirubin 0.4
AST 35
ALT 12
Alkaline Phosphatase 62
Vital Signs:
Vital Signs
Temp Pulse Resp BP Pulse Ox
97.8 F 67 14 137/67 94
06/23/24 07:50 06/23/24 08:00 06/23/24 08:00 06/23/24 08:00 06/23/24 08:00
I&O
06/22/24 06/23/24 06/24/24
06:59 06:59 06:59
Intake Total 824 / 824 1456 / 1456
Output Total 1350 / 1350 1800 / 1800 350 / 350
Balance -526 / -526 -344 / -344 -350 / -350
Review of Systems
-
History Source: Patient
All other systems: Reviewed and negative
Physical Exam
-
General: Well Developed, Well Nourished, No Apparent Distress, Comfortable and Conversant
HEENT: Normocephalic, Atraumatic, Moist Mucous Membranes, Nose Appears Normal and Ears Appear Normal
Respiratory: Clear to Auscultation
Cardiac: Regular Rhythm and S1/S2
GI: Soft, Nontender and Nondistended
Musculoskeletal: No Clubbing, No Cyanosis and No Edema
Skin: Warm and Dry
Neuro: Awake, Alert, Oriented and AO x 3
Psych: Calm
Data Reviewed
-
Labs: Labs Reviewed by me
[2024-06-23 12:13] LABS: Ceruloplasmin 32 mg/dL (16-45)
--- NOTE | 2024-06-23 15:31 | CM ---
CM reviewed chart
Remains in IMU and ADC>48 hours
Independent in room and diet advancing
Discharge Disposition- anticipate home no needs
--- NOTE | 2024-06-23 16:40 | PTCARENOTE ---
Rec'd pt this AM. OOB to chair, no complaints. vital signs stable.
[2024-06-23] MEDS: SANDOSTATIN 500.6 MCG IV (17:00)
[2024-06-23] MEDS: PROTONIX IV (17:10)
[2024-06-23 17:51] LABS: Mitochondrial M2 Ab, IgG 8.7 Units (0.0-24.9)
[2024-06-23 18:52] LABS: AFP Male/Tumor Marker 2.54 ng/ml
[2024-06-23] MEDS: CRESTOR 5 MG PO (20:48)
[2024-06-23] MEDS: PROTONIX IV 40 MG IV (20:48)
[2024-06-23] MEDS: NSS (PRESERVATIVE FREE) 10 ML IV (20:48)
--- NOTE | 2024-06-23 22:47 | PTCARENOTE ---
Rec'd pt OOB to chair. Pt ambulated from chair to bed without difficulty. Oriented, denies complaints at this time. Does mention chronic upper back/neck pain that is intermittent, pt states that she has to be careful not to aggravate it. Octreotide
gtt remains in place, see MAR. VSS. Call avina within reach.
[2024-06-24] VITALS (12 sets, daily range): BP systolic 97–156; BP diastolic 60–89; BMI 32.7
[2024-06-24 01:41] LABS: ANA, IgG Reflex to HEp-2 Detected (None Detected)
[2024-06-24] MEDS: SANDOSTATIN 500.6 MCG IV (04:45)
[2024-06-24] MEDS: SYNTHROID 50 MCG PO (04:46)
[2024-06-24] MEDS: CIPRO 400 MG 200 IV ×2 (05:09→16:31)
[2024-06-24 06:33] LABS: Hematocrit 25.2 % (37.0-47.0); Mean Corp Hgb Conc. 31.7 g/dL (33.0-37.0); Mean Corpuscular Hgb 26.5 pg (27.0-31.0); Mean Corpuscular Volume 83.4 fL (81.0-99.0); Mean Platelet Volume 10.3 fL (7.4-10.4); Platelet Count 133 10^3/uL (130-400); Red Blood Cell Count 3.02 10^6/uL (4.20-5.40); Red Cell Dist. Width 18.1 % (11.5-14.5); White Blood Cell Count 3.5 10^3/uL (4.8-10.8)
--- NOTE | 2024-06-24 07:11 | W.PN.HOSP.TC ---
Today's Communication/Plan
-
Advance diet per GI. Also, if GI agrees, may be downgraded to MS.
Assessment / Plan
Assessment / Plan
69 woman with syncopal event and black stools after taking ibuprofen.
EGD 06/20: noted Large (> 5 mm) esophageal varices with stigmata of recent bleeding. Banded. Clotted blood in the gastric fundus.
A/P:
1. Upper GI bleeding/symptomatic acute blood loss anemia, 2/2 esophageal varices - UGIB exacerbated by NSAID use
Hgb 8.3 (06/22) -> 9.0 (06/23) -> 8.0 (06/24)
Octreotide drip and Protonix drip per GI -
Cipro started for HE prophylaxis x7 days total (stop on Jun 27)
Abdominal ultrasound with doppler was limited, did not reveal any abnormality.
Coarsened echotexture of the liver which is likely secondary to chronic liver disease.
Hepatitis panel negative
- Follow autoimmune Ab (CRIS, mitochondrial, liver Ag Ab, liver/kidney microsome, anti smooth muscle) for AIH work up
- Need repeat upper GI endoscopy in 4 weeks with GI outpt
- Hold ibuprofen all NSAIDS indefinitely
- Iron studies reviewed, started PO iron
- B12 level 400, started PO B12 supplement
Diet to be advanced per GI
IF GI agrees, can be moved out of IMU today
2. Hypothyroidism
Continue levothyroxine
3. Chronic interstitial cystitis
Continue po meds:
Continue amitriptyline
Continue oxybutynin
Continue Elmiron
4. Hyperlipidemia
Continue statin
5. Essential hypertension
Hold metoprolol
restart as outpatient
Full code
DVT prophylaxis�SCDs
DW extensively at bedside
total time spent 51 min
Anticipated Discharge: 24 - 48 hours
Subjective/Interval History
-
Date of Service: June 24, 2024
Tolerating clears
Objective Data
-
Labs:
Laboratory Results
06/24/24 06/24/24
05:23 06:19
WBC Cancelled 3.5 L
Hgb Cancelled 8.0 L
Hct Cancelled 25.2 L
Plt Count Cancelled 133
Vital Signs:
Vital Signs
Temp Pulse Resp BP Pulse Ox
97.4 F 62 11 139/65 98
06/24/24 03:12 06/24/24 06:00 06/24/24 06:00 06/24/24 06:00 06/24/24 04:52
I&O
06/23/24 06/24/24 06/25/24
06:59 06:59 06:59
Intake Total 1456 / 1456 740.4 / 740.4
Output Total 1800 / 1800 350 / 350
Balance -344 / -344 390.4 / 390.4
Review of Systems
-
History Source: Patient
All other systems: Reviewed and negative
Physical Exam
-
General: Well Developed, Well Nourished, No Apparent Distress, Comfortable and Conversant
Respiratory: Clear to Auscultation
Cardiac: Regular Rhythm and S1/S2
GI: Soft, Nontender and Nondistended
Musculoskeletal: No Clubbing, No Cyanosis and No Edema
Skin: Warm and Dry
Neuro: Awake, Alert, Oriented and AO x 3
Psych: Calm
Data Reviewed
-
Labs: Labs Reviewed by me
[2024-06-24] MEDS: FEOSOL 325 MG PO (08:41)
[2024-06-24] MEDS: VITAMIN B-12 1000 MCG PO (08:41)
[2024-06-24] MEDS: DITROPAN 2.5 MG PO ×2 (08:41→20:01)
[2024-06-24] MEDS: NSS (PRESERVATIVE FREE) 10 ML IV ×2 (08:43→20:02)
[2024-06-24] MEDS: PROTONIX IV 40 MG IV ×2 (08:43→20:02)
--- NOTE | 2024-06-24 09:53 | W.PN.GI.CBS2 ---
Addendum entered and electronically signed by Bradley Jordan DO 06/24/24 16:02:
I saw and examined the patient.
The NURSING STAFF DEVELOPMENT COORDINATOR's note was reviewed and I agree with the note.
Comment: Ms. Dorantes is a 69 yo female admitted with melena and anemia s/p EGD with Dr. Seymour 06/20 found to have esophageal varices s/p banding, blood in stomach limiting views. Platelets low/normal, coarse echotexture on liver on Doppler suspect
new diagnosis cirrhosis. No ETOH use in past, although has risk factors for MASLD/MASH. Episode of melena overnight on 06/23 and concern for drop in Hgb. However, suspect prior H/h with Hgb 9.0 (as prior Hgb 7.8 on 06/23) likely hemoconcentrated
overnight on 06/23 and repeat Hgb 8.0 on AM labs. Prior BUN down-trending which is further reassuring. No CMP and would continue trending MELD 3.0 labs while inpatient. Agree with monitoring for additional 24 hrs given the previous concern for drop
in Hgb and continue full liquid diet today. If H/h remains stable off IV Octreotide gtt into tomorrow can likely be discharged with close outpatient follow-up. Agree with starting NSBB with Coreg 3.125 mg BiD for 2' EV ppx and can be further
uptitrated as an outpatient (this was also d/w patient's PCP). Favor PPI 40 mg BiD for at least 2 weeks for prevention of post-banding ulceration and will ultimately need a repeat EGD in 4 weeks. Await rest of chronic serologic liver w/u while
inpatient which can be further f/u as an outpatient as patient has a f/u with us in the office on 07/09 with Shara. See rest of care as outlined below.
GI team will continue to follow while inpatient. Please call with any questions or concerns.
Addendum entered and electronically signed by DAISY Rodriguez 06/24/24 15:10:
Dr. Aguayo was able to discuss with patient PCP. Ok with stopping Metoprolol and changing to Coreg 3.125 mg po BID. Patient has been off Metoprolol at the present time. Will start Coreg this evening. Discussed with Dr. Patel.
Original Note:
Today's Communication / Plan
-
As per plan
Assessment / Plan
-
Impression: 69-year-old female with PMH of hypothyroidism, dyslipidemia, essential hypertension who presented to the ED with melena, dizziness. Labs done in the ED was significant for Hb of 7.9.--> Hemoglobin 8.0 this a.m. patient tolerating full
liquid diet.
Assessment/plan:
#Symptomatic acute blood loss anemia
Upper GI bleeding secondary to varices s/p EGD with EBL 06/20. No prior hx of liver cirrhosis. denies any significant alcohol use or history of hepatitis or substance abuse.AST/ALT/ALP/T.bili normal
EGD 06/20/2024:
Large (> 5 mm) esophageal varices with stigmata of
recent bleeding. Incompletely eradicated. Banded.
- Clotted blood in the gastric fundus.
- Normal duodenal bulb, first portion of the duodenum
and second portion of the duodenum.
- No specimens collected.
Ultrasound abdomen with Doppler 06/20/2024
Coarsened echotexture of the liver which is likely secondary to chronic liver disease. Normal ultrasound evaluation of abdominal vasculature. No ascites
Plan:
No further GI bleeding. Hb stable this a.m.-> 8.0 (up from 7.4)
CBC, BMP in am
DC oral iron, patient not iron deficient. Also confusing with dark stools for patient unable to determine if she is having melena or not.
Advance soft diet
Continue octreotide drip to be DC today
Pantoprazole 40 mg BID
Continue Cipro BID until 06/27/24
Repeat EGD in [address] Seymour. sent message to our scheduling to arrange
Acute hepatitis panel negative. T Bili and LFTs WNL
Ordered chronic liver disease workup-pending
Follow-up appointment with myself 07/09 at 11:30 AM
Our office to reach out to PCP to see if okay with changing metoprolol to Coreg on discharge which would be beneficial to varices.
Patient to follow-up with of Dr. Cole at [facility] (who comes to [place] office).
Subjective
Subjective
Date of Service: June 24, 2024
Patient with black stool this morning. However hemoglobin is stable at 8.0 increased from 7.8 yesterday. Patient is also receiving oral iron. Tolerating full liquid diet. Will advance. Will also stop oral iron as patient not iron deficient.
Also confusing for patient with dark stools unable to tell if she is having melena.
Objective
Data Reviewed
Laboratory Data:
Laboratory Results
06/24/24 06:19
06/23/24 04:41
Laboratory Results
PT 14.0 Sec (11.4-14.6) 06/21/24 05:54
INR 1.03 06/21/24 05:54
Magnesium 1.7 mg/dl (1.6-2.3) 06/22/24 03:40
Total Bilirubin 0.4 mg/dl (0.2-1.3) 06/23/24 04:41
AST 35 U/L (14-36) 06/23/24 04:41
ALT 12 U/L (0-35) 06/23/24 04:41
Alkaline Phosphatase 62 U/L (38-126) 06/23/24 04:41
Vital Signs and I&O:
Vital Signs
Temp Pulse Resp BP Pulse Ox
97.5 F 82 16 151/75 98
06/24/24 07:15 06/24/24 08:00 06/24/24 08:00 06/24/24 08:00 06/24/24 04:52
I&O
06/23/24 06/24/24 06/25/24
06:59 06:59 06:59
Intake Total 1456 / 1456 740.4 / 740.4
Output Total 1800 / 1800 350 / 350
Balance -344 / -344 390.4 / 390.4
Physical Exam
Physical Exam
HEENT: Anicteric
Cardiology: Normal Sinus Rhythm
Pulmonary: Clear
GI: Soft, Non Distended, Non Tender and Normal Bowel Sounds
Extremities: No Edema
Neuro: Non Focal
--- NOTE | 2024-06-24 16:18 | PTCARENOTE ---
Rec'd pt this AM. vital signs stable. OOB to bathroom. tolerated updgraded diet.
[2024-06-24 17:35] LABS: F-Actin Antibody IgG 11 Units (0-19)
[2024-06-24] MEDS: CRESTOR 5 MG PO (20:01)
[2024-06-24] MEDS: COREG 3.125 MG PO (20:01)
[2024-06-24 20:05] LABS: LKM-1 Ab (IgG) 0.9 U (0.0-24.9); Soluble Liver Antigen Ab 2.4 U (0.0-24.9)
[2024-06-25] VITALS: BP 116/56
--- NOTE | 2024-06-25 00:38 | PTCARENOTE ---
assumed care of patient. pt is AAOx3, able to make needs known. no c/o pain. able to walk into bathroom x1 assist without issues. care ongoing.
[2024-06-25 02:00] VITALS: BP 130/88
[2024-06-25 04:00] VITALS: BP 104/61
[2024-06-25] MEDS: SYNTHROID 50 MCG PO (04:24)
[2024-06-25] MEDS: CIPRO 400 MG 200 IV (04:24)
[2024-06-25 04:55] VITALS: BMI 32.5
[2024-06-25 05:07] LABS: ALT (SGPT) 14 U/L (0-35); AST (SGOT) 37 U/L (14-36); Albumin 3.2 g/dl (3.5-5.0); Alkaline Phosphatase 64 U/L (38-126); Blood Urea Nitrogen 10 mg/dl (7-17); Calcium 8.3 mg/dl (8.4-10.2); Carbon Dioxide 22 mmol/L (22-30); Chloride 105 mmol/L (98-107); Estimated Creatinine Clearance 61 ml/min; Glucose 99 mg/dl (70-99); Sodium 136 mmol/L (135-145); Total Bilirubin 0.3 mg/dl (0.2-1.3); Total Protein 6.1 g/dl (6.3-8.2); eGFR > 60.00
[2024-06-25 05:49] LABS: Hematocrit 23.8 % (37.0-47.0); Hemoglobin 7.6 g/dL (12.0-16.0); Mean Corp Hgb Conc. 31.9 g/dL (33.0-37.0); Mean Corpuscular Hgb 26.3 pg (27.0-31.0); Mean Corpuscular Volume 82.4 fL (81.0-99.0); Mean Platelet Volume 10.4 fL (7.4-10.4); Platelet Count 150 10^3/uL (130-400); Red Blood Cell Count 2.89 10^6/uL (4.20-5.40); Red Cell Dist. Width 18.6 % (11.5-14.5); White Blood Cell Count 3.5 10^3/uL (4.8-10.8)
[2024-06-25 06:01] VITALS: BP 109/54
[2024-06-25 08:00] VITALS: BP 109/68
[2024-06-25] MEDS: NSS (PRESERVATIVE FREE) 10 ML IV (08:59)
[2024-06-25] MEDS: VITAMIN B-12 1000 MCG PO (08:59)
[2024-06-25] MEDS: COREG 3.125 MG PO (08:59)
[2024-06-25] MEDS: PROTONIX IV 40 MG IV (08:59)
[2024-06-25] MEDS: DITROPAN 2.5 MG PO (09:00)
--- NOTE | 2024-06-25 09:29 | W.PN.GI.CBS2 ---
Today's Communication / Plan
-
-- ok for discharge from GI perspective
home with BID ppi x 2wks, coreg 3.125mg BID, repeat CBC, CMP in 1 wk, soft diet x 1 wk, follow up on 07/09 in our office as above
patient aware what to look for at home
discussed with patient and at bedside
Assessment / Plan
-
Impression: 69-year-old female with PMH of hypothyroidism, dyslipidemia, essential hypertension who presented to the ED with melena, dizziness. Labs done in the ED was significant for Hb of 7.9.--> Hemoglobin 8.0 this a.m. patient tolerating full
liquid diet.
Assessment/plan:
#Symptomatic acute blood loss anemia
Upper GI bleeding secondary to varices s/p EGD with EBL 06/20. No prior hx of liver cirrhosis. denies any significant alcohol use or history of hepatitis or substance abuse.AST/ALT/ALP/T.bili normal
Status post 1 unit of blood on 06/20
EGD 06/20/2024:
Large (> 5 mm) esophageal varices with stigmata of
recent bleeding. Incompletely eradicated. Banded.
- Clotted blood in the gastric fundus.
- Normal duodenal bulb, first portion of the duodenum
and second portion of the duodenum.
- No specimens collected.
Ultrasound abdomen with Doppler 06/20/2024
Coarsened echotexture of the liver which is likely secondary to chronic liver disease. Normal ultrasound evaluation of abdominal vasculature. No ascites
Plan 06/25/24:
No further GI bleeding. Hemoglobin somewhat erratic but appears since banding has maintained around 8. 7.6 this morning, BUN is completely normalized down to 10, platelets 150
DC oral iron, patient not iron deficient. Also confusing with dark stools for patient unable to determine if she is having melena or not.
soft diet for one more week
Pantoprazole 40 mg BID x 2 weeks then once daily until repeat
Patient currently on Cipro during GI bleed in the setting of suspected cirrhosis patient is allergic to penicillin. Per guidelines required for 2 to 5 days -okay to stop upon discharge
Repeat EGD in [address] Seymour. sent message to our scheduling to arrange
Acute hepatitis panel negative. T Bili and LFTs WNL
Ordered chronic liver disease workup-pending, CRIS currently positive. Will add immunoglobulins
Follow-up appointment with DAISY Feliciano 07/09 at 11:30 AM
Changed metoprolol to Coreg due to beneficial to varices.
Will need repeat CBC, CMP in roughly 5-7 days outpatient
Patient to follow-up with of Dr. Cole at [facility] (who comes to [facility]).
Subjective
Subjective
Date of Service: June 25, 2024
right hand is mildly swollen
Objective
Data Reviewed
Laboratory Data:
Laboratory Results
06/25/24 05:24
06/25/24 04:31
Laboratory Results
PT 14.0 Sec (11.4-14.6) 06/21/24 05:54
INR 1.03 06/21/24 05:54
Magnesium 1.7 mg/dl (1.6-2.3) 06/22/24 03:40
Total Bilirubin 0.3 mg/dl (0.2-1.3) 06/25/24 04:31
AST 37 U/L (14-36) H 06/25/24 04:31
ALT 14 U/L (0-35) 06/25/24 04:31
Alkaline Phosphatase 64 U/L (38-126) 06/25/24 04:31
Vital Signs and I&O:
Vital Signs
Temp Pulse Resp BP Pulse Ox
98.2 F 79 18 109/68 95
06/25/24 07:15 06/25/24 08:59 06/25/24 06:00 06/25/24 08:59 06/24/24 20:46
I&O
06/24/24 06/25/24 06/26/24
06:59 06:59 06:59
Intake Total 740.4 / 740.4
Output Total 350 / 350
Balance 390.4 / 390.4
Physical Exam
Physical Exam
HEENT: Anicteric
Cardiology: Normal Sinus Rhythm
Pulmonary: Clear
GI: Soft and Non Distended
Extremities: Edema (right hand edema)
Neuro: Non Focal
[2024-06-25 10:00] VITALS: BP 94/82
--- NOTE | 2024-06-25 10:28 | W.PN.HOSP.TC ---
Today's Communication/Plan
-
ready for discharge
Assessment / Plan
Assessment / Plan
69 woman with syncopal event and black stools after taking ibuprofen.
EGD 06/20: noted Large (> 5 mm) esophageal varices with stigmata of recent bleeding. Banded. Clotted blood in the gastric fundus.
A/P:
1. Upper GI bleeding/symptomatic acute blood loss anemia, 2/2 esophageal varices - UGIB exacerbated by NSAID use
Hgb 8.3 (06/22) -> 9.0 (06/23) -> 8.0 (06/24)
Octreotide drip and Protonix drip per GI - stopped
Cipro started for HE prophylaxis x7 days total (OK to stop today)
Abdominal ultrasound with doppler was limited, did not reveal any abnormality.
Coarsened echotexture of the liver which is likely secondary to chronic liver disease.
Hepatitis panel negative
- Follow autoimmune Ab (CRIS, mitochondrial, liver Ag Ab, liver/kidney microsome, anti smooth muscle) for AIH work up
- Need repeat upper GI endoscopy in 4 weeks with GI outpt
- Hold ibuprofen all NSAIDS indefinitely
- Iron studies reviewed, started PO iron
- B12 level 400, started PO B12 supplement
Per GI, can be discharged today
2. Hypothyroidism
Continue levothyroxine
3. Chronic interstitial cystitis
Continue po meds:
Continue amitriptyline
Continue oxybutynin
Hold Elmiron (causes rectal bleeding)
4. Hyperlipidemia
Continue statin
5. Essential hypertension
Hold metoprolol
restart as outpatient after cardiology visit.
Full code
DVT prophylaxis�SCDs
DW patient and extensively at bedside
total time spent 51 min
Anticipated Discharge: Today
Subjective/Interval History
-
Date of Service: June 25, 2024
Feels well. Tolerating a diet.
Objective Data
-
Labs:
Laboratory Results
06/25/24 06/25/24
04:31 05:24
WBC Cancelled 3.5 L
Hgb Cancelled 7.6 L
Hct Cancelled 23.8 L
Plt Count Cancelled 150
Sodium 136
Potassium 4.0
Chloride 105
Carbon Dioxide 22
BUN 10
Creatinine 0.9
Glucose 99
Calcium 8.3 L
Total Bilirubin 0.3
AST 37 H
ALT 14
Alkaline Phosphatase 64
Vital Signs:
Vital Signs
Temp Pulse Resp BP Pulse Ox
98.2 F 79 18 109/68 95
06/25/24 07:15 06/25/24 08:59 06/25/24 08:00 06/25/24 08:59 06/25/24 08:00
I&O
06/24/24 06/25/24 06/26/24
06:59 06:59 06:59
Intake Total 740.4 / 740.4
Output Total 350 / 350
Balance 390.4 / 390.4
Review of Systems
-
History Source: Patient
All other systems: Reviewed and negative
Physical Exam
-
General: Well Developed, Well Nourished, No Apparent Distress and Comfortable
HEENT: Normocephalic, Atraumatic, Moist Mucous Membranes, Nose Appears Normal and Ears Appear Normal
Respiratory: Clear to Auscultation
Cardiac: Regular Rhythm and S1/S2
GI: Soft, Nontender and Nondistended
Skin: Warm and Dry
Neuro: Awake, Alert, Oriented and AO x 3
Psych: Calm
Data Reviewed
-
Labs: Labs Reviewed by me
--- NOTE | 2024-06-25 10:41 | W.DCSUMMARY ---
Discharge Summary
Discharge Data
Date of Admission: 06/19/24
Date of Discharge: 06/25/24
Total time spent discharging patient (in min): 45
-
Pending Results: Yes
Hospital Course
Principal Diagnosis:
GI bleed
Chronic Diagnoses:�
hypothyroidism,
hyperlipidemia,
interstitial cystitis,
essential hypertension,
Consultations:�
GI.
GI discharge recommendations:
DC oral iron, patient not iron deficient. Also confusing with dark stools for patient unable to determine if she is having melena or not.
soft diet for one more week
Pantoprazole 40 mg BID x 2 weeks then once daily until repeat
Repeat EGD in [address] Seymour. sent message to our scheduling to arrange
Ordered chronic liver disease workup-pending, CRIS currently positive. Will add immunoglobulins
Follow-up appointment with DAISY Feliciano 07/09 at 11:30 AM
Changed metoprolol to Coreg due to beneficial to varices.
Will need repeat CBC, CMP in roughly 5-7 days outpatient
Patient to follow-up with of Dr. Cole at [facility] (who comes to [place] office).
Procedures:�
EGD
- Large (> 5 mm) esophageal varices with stigmata of
recent bleeding. Incompletely eradicated. Banded.
- Clotted blood in the gastric fundus.
- Normal duodenal bulb, first portion of the duodenum
and second portion of the duodenum.
- No specimens collected.
Clinical course:�
69 woman with syncopal event and black stools after taking ibuprofen.
EGD 06/20: noted Large (> 5 mm) esophageal varices with stigmata of recent bleeding. Banded. Clotted blood in the gastric fundus.
1. Upper GI bleeding/symptomatic acute blood loss anemia, 2/2 esophageal varices - UGIB exacerbated by NSAID use
Cipro started for HE prophylaxis (OK to stop at discharge)
Abdominal ultrasound with doppler was limited, did not reveal any abnormality.
Coarsened echotexture of the liver which is likely secondary to chronic liver disease.
Hepatitis panel negative
- Follow autoimmune Ab (CRIS, mitochondrial, liver Ag Ab, liver/kidney microsome, anti smooth muscle) for AIH work up
- Need repeat upper GI endoscopy in 4 weeks with GI outpt
- Hold ibuprofen all NSAIDS indefinitely
- Iron studies reviewed, started PO iron
- B12 level 400, started PO B12 supplement
2. Hypothyroidism
Continue levothyroxine
3. Chronic interstitial cystitis
Continue po meds:
Continue amitriptyline
Continue oxybutynin
Hold Elmiron (sometimes causes rectal bleeding)
4. Hyperlipidemia
Continue statin
5. Essential hypertension
Hold metoprolol - changed to coreg.
As for the rest of her medical problems, they were stable during his hospital stay.
Discharge Plan
-
Patient Disposition: Home (Routine Discharge)
Discharge Diagnosis/Procedures: GI bleed
Diet: As tolerated
Activity: As tolerated
Driving Restrictions: As prior to admission
Bathing Restrictions: None
Blood Work: Repeat CBC and BMP with PCP as soon as possible
Activity Restrictions/Additional Instructions:
Follow autoimmune Antibody (CRIS, mitochondrial, liver Ag Ab, liver/kidney microsome, anti smooth muscle) with the GI doctor
Referrals:
Shara Potter CRNP [Non-Admitting Privileges] - 07/09/24 11:30 am (Please call to reschedule if you can not keep this appointment. If your insurance requires a referral please contact your primary care physician prior to your
appointment. )
UNKNOWN - PT DOES,NOT KNOW [Family Provider] -
Jody Raines, DO [Active] -
Prescriptions:
New
carvedilol 3.125 mg Tablet
3.125 mg PO BID Qty: 30 0RF
pantoprazole [Protonix] 40 mg tablet,delayed release (DR/EC)
40 mg PO BID Qty: 60 0RF
Continued
amitriptyline 50 mg Tablet
50 mg PO HS
levothyroxine 50 mcg Tablet
50 mcg PO DAILY
oxybutynin chloride 5 mg Tablet Extended Release 24hr
5 mg PO DAILY
rosuvastatin 5 mg Tablet
5 mg PO HS
cholecalciferol (vitamin D3) [Vitamin D3] 25 mcg (1,000 unit) Tablet
25 mcg PO DAILY
Held
Elmiron 100 mg Capsule
200 mg PO BID
Hold Instructions: Resume on 07/23/24. Restart after seeing your PCP or bladder doctor.
metoprolol succinate 25 mg Tablet Extended Release 24 Hr
25 mg PO DAILY
Hold Instructions: Resume on 07/23/24. See your PCP before re-starting this drug. Please have PCP review all your meds.
Discontinued
ibuprofen [Advil] 200 mg Tablet
400 mg PO Q8HPRN PRN (Reason: headache)
Discharge Orders:
Discharge Patient (As Directed); Ordered 06/25/24
Ordered By: Richard Patel
Discharge Date and Time
Print Language: EGYPTIAN
--- NOTE | 2024-06-25 10:42 | VATNOTE ---
Right hand remains swollen warm compresses continued.
--- NOTE | 2024-06-25 11:02 | PTCARENOTE ---
Patient is AOx3. VSS. Patient on RA. NSR on the monitor. Assist x1 when OOB. Call avina within reach, bed in lowest position, and bed of wheels locked.
[2024-06-25] MEDS: FLUAD (65 yr+) 2024-2025 FORMULA 0.5 ML IM (11:05)
[2024-06-26 00:30] LABS: ANA, HEp-2, IgG Detected (<1:80)
[2024-06-26 05:15] LABS: IgA 220 mg/dl (70-400); IgG 1100 mg/dl (700-1600); IgM 78 mg/dl (40-230)
[2024-06-27 07:33] LABS: ANA Pattern Speckled
== END 2024-06-25 11:51 | disposition home or self-care (01) | DRG 369 ==
LOC: IMU 20:06
PROVIDERS: Internal Medicine; Internal Medicine Gastroenterology; Nurse Practitioner; Physician Assistant; Student in an Organized Health Care Education/Training Program; ADMITTING PHYSICIAN Hospitalist; ATTENDING PHYSICIAN Internal Medicine; EMERGENCY PHYSICIAN Emergency Medicine; OTHER PHYSICIAN Internal Medicine Gastroenterology
PROC: 06L38CZ Occlusion of Esophageal Vein with Extraluminal Device, Via Natural or Artificial Opening Endoscopic (ICD-10-PCS; 2024-06-20)
DX: I85.01 Esophageal varices with bleeding (principal); D61.818 Other pancytopenia; D62 Acute posthemorrhagic anemia; E03.9 Hypothyroidism, unspecified; E78.00 Pure hypercholesterolemia, unspecified; N30.10 Interstitial cystitis (chronic) without hematuria; I10 Essential (primary) hypertension; K76.9 Liver disease, unspecified; Z79.890 Hormone replacement therapy; Z91.040 Latex allergy status; Z88.0 Allergy status to penicillin; T39.395A Adverse effect of other nonsteroidal anti-inflammatory drugs [NSAID], initial encounter
CPT/HCPCS: 76700; 80048; 80053; 82105; 82248; 82390; 82607; 82728; 82784; 83516; 83540; 83550; 83735; 85014; 85018; 85025; 85027; 85045; 85610; 86015; 86038; 86039; 86376; 86381; 86705; 86706; 86709; 86803; 86850; 86900; 86901; 86920; 87340; 90662; 93005; 93975; 96374; 99285; G0008; P9016

== ENCOUNTER 2024-07-17 06:14 | Day surgery (SDC) | payer OTHER, SELFPAY ==
[2024-07-17 10:30] VITALS: BP 124/66
[2024-07-17 10:43] VITALS: BMI 31.4
[2024-07-17 10:48] VITALS: BMI 31.4
[2024-07-17 12:15] VITALS: BP 100/53
[2024-07-17 12:30] VITALS: BP 112/58
[2024-07-17 12:45] VITALS: BP 117/59
== END 2024-07-17 14:25 | disposition home or self-care (01) ==
LOC: GI 06:14
PROVIDERS: ATTENDING PHYSICIAN Internal Medicine Gastroenterology
DX: I85.00 Esophageal varices without bleeding (principal); K22.89 Other specified disease of esophagus
CPT/HCPCS: 43235

== ENCOUNTER 2024-08-01 06:31 | Day surgery (SDC) | payer OTHER, SELFPAY ==
[2024-08-01 12:55] VITALS: BMI 32.1
[2024-08-01 13:06] VITALS: BMI 32.1
[2024-08-01 13:10] VITALS: BP 141/75
[2024-08-01 15:03] VITALS: BP 115/97
[2024-08-01 15:16] VITALS: BP 160/78
[2024-08-01 15:30] VITALS: BP 168/82
[2024-08-01] MEDS: TYLENOL 1000 MG PO (15:39)
== END 2024-08-01 16:30 | disposition home or self-care (01) ==
LOC: GI 06:31
PROVIDERS: ATTENDING PHYSICIAN Internal Medicine Gastroenterology
DX: I85.00 Esophageal varices without bleeding (principal); K31.89 Other diseases of stomach and duodenum; K76.6 Portal hypertension; K22.89 Other specified disease of esophagus
CPT/HCPCS: 43244

== ENCOUNTER → 2024-08-14 17:32 | Outpatient (REF) | payer OTHER, SELFPAY | LOC: MRI 3T 17:32 | PROVIDERS: ATTENDING PHYSICIAN Nurse Practitioner; FAMILY PHYSICIAN Family Medicine | DX: I85.01 Esophageal varices with bleeding (principal); R93.2 Abnormal findings on diagnostic imaging of liver and biliary tract | CPT/HCPCS: 74183; A9575 ==

== ENCOUNTER → 2024-08-20 12:11 | Outpatient (REF) | payer OTHER, SELFPAY | LOC: RAD 12:11 | PROVIDERS: ATTENDING PHYSICIAN Nurse Practitioner; FAMILY PHYSICIAN Family Medicine | DX: I85.01 Esophageal varices with bleeding (principal) | CPT/HCPCS: 71260; Q9967 ==

== ENCOUNTER 2024-08-29 06:10 | Day surgery (SDC) | payer OTHER, SELFPAY ==
[2024-08-29 09:37] VITALS: BMI 32.1
[2024-08-29 09:38] VITALS: BMI 32.1
[2024-08-29 09:39] VITALS: BP 139/69
[2024-08-29 12:55] VITALS: BP 146/68
[2024-08-29 13:00] VITALS: BP 143/71
[2024-08-29 13:15] VITALS: BP 144/68
[2024-08-29] MEDS: TYLENOL 650 MG PO (13:27)
== END 2024-08-29 13:41 | disposition home or self-care (01) ==
LOC: SDS 06:10
PROVIDERS: ATTENDING PHYSICIAN Internal Medicine Gastroenterology
DX: I85.00 Esophageal varices without bleeding (principal); K76.6 Portal hypertension; K31.89 Other diseases of stomach and duodenum
CPT/HCPCS: 43244

== ENCOUNTER 2024-09-26 06:22 | Day surgery (SDC) | payer OTHER, SELFPAY ==
[2024-09-26 11:47] VITALS: BMI 31.5
[2024-09-26 11:48] VITALS: BP 136/69; BMI 31.5
[2024-09-26 13:02] VITALS: BP 104/58
[2024-09-26 13:15] VITALS: BP 116/59
== END 2024-09-26 13:42 | disposition home or self-care (01) ==
LOC: GI 06:22
PROVIDERS: ATTENDING PHYSICIAN Internal Medicine Gastroenterology
DX: I85.00 Esophageal varices without bleeding (principal); K44.9 Diaphragmatic hernia without obstruction or gangrene; K76.6 Portal hypertension; K31.89 Other diseases of stomach and duodenum
CPT/HCPCS: 43235